=== PATIENT | male | born 1965 | race Caucasian/White ===

== ENCOUNTER 2016-06-14 11:33 | Emergency (ER) | payer OTHER ==
[~2016-06-14] VITALS: Ht 170.2 cm; Wt 88.5 kg
[2016-06-14] MEDS ORDERED: VITAMIN D250000 UNIT PO (12:04)
[2016-06-14] MEDS ORDERED: CLONAZEPAM0.5 M2 PO (12:04)
[2016-06-14] MEDS ORDERED: ATORVASTATIN CA20 M1 PO (12:05)
[2016-06-14] MEDS ORDERED: FOLIC ACID1 M1 PO (12:05)
[2016-06-14] MEDS ORDERED: AMLODIPINE-VAL1 EAC2 PO (12:05)
--- NOTE | 2016-06-14 13:11 | ED AMS/SEIZURE/WEAK/DIZZY ---
See Addendum History of Present Illness General Chief Complaint: Dizziness Stated Complaint: DIZZY Source: patient, family, old records Exam Limitations: no limitations Vital Signs & Intake/Output Vital Signs & Intake/Output Vital Signs Date Time Temp Pulse Resp B/P Pulse O2 O2 Flow FiO2 Ox Delivery Rate 06/14 1403 97.5 76 18 148/93 97 Room Air 06/14 1200 97 Room Air Room Air 06/14 1144 98.2 92 20 152/84 97 Room Air Allergies Coded Allergies: NO KNOWN ALLERGIES (06/14/16) Reconcile Medications Amlodipine/Valsartan (Amlodipine-Valsartan 5-320 MG) 5 MG-320 MG TABLET 1 TAB PO DAILY HEART (Reported) Atorvastatin Calcium 20 MG TABLET 1 TAB PO DAILY CHOLESTEROL (Reported) Clonazepam 0.5 MG TABLET 1 TAB PO DAILY ANXIETY (Reported) Ergocalciferol (Vitamin D2) (Vitamin D2) 50,000 UNIT CAPSULE 1 CAP PO QMON SUPPPLEMENT (Reported) Folic Acid 1 MG TABLET 1 TAB PO DAILY SUPPLEMENT (Reported) Triage Note: PT TO ER C/O SOB, DIZZY. PT WAS SEEN AT [facility] AND WAS SENT IN FOR FURTHER EVALUATION.. PT DENIES CP AND STATES HE HAS A HX OF ANXIETY. PT STATES HE FEELS LIKE HE IS GOING TO PASS OUT. Triage Nurses Notes Reviewed? yes HPI: Patient presents for evaluation of dizziness that began about 9:00 this morning. Patient states he had routine blood work at about 6:00 through the medical office at his employer. At about 9:00 he began having dizziness while at work. He went to the medical office and had repeat testing including an EKG blood pressure reading and a fingerstick blood glucose level. His blood pressure was elevated but the rest of the tests were unremarkable. Began feeling better after lying for a short time. Shortly after leaving the medical office he began feeling dizzy again and he returned. He was then asked to be evaluated in the emergency department. Patient states that there is a spinning component to his dizziness and he states he feels a little short of breath and shaky during the dizzy episodes. He also feels heart palpitations. He otherwise denies cold symptoms tinnitus or recent trauma. Symptoms are described as mild to moderate in intensity. Nothing seems to make him feel better. Past History Travel History Traveled to [place] past 21 day No Medical History Any Pertinent Medical History? see below for history Cardiovascular: hypertension, hyperlipidemia, HEART BLOCK Gastrointestinal: GERD Psychiatric: anxiety Endocrine: LYME DISEASE Surgical History Surgical History: non-contributory Psychosocial History Who do you live with Family Services at Home None What is your primary language Kiswahili Tobacco Use: Current Daily Use Daily Tobacco Use Amount/Type: => 5 Cigarettes daily Family History Hx Contributory? No Review of Systems Review of Systems Constitutional: Reports: no symptoms. EENTM: Reports: no symptoms. Respiratory: Reports: see HPI. Cardiovascular: Reports: palpitations. GI: Reports: no symptoms. Genitourinary: Reports: no symptoms. Musculoskeletal: Reports: no symptoms. Skin: Reports: no symptoms. Neurological/Psychological: Reports: anxiety, tremors. Hematologic/Endocrine: Reports: no symptoms. Immunologic/Allergic: Reports: no symptoms. All Other Systems: Reviewed and Negative Physical Exam Physical Exam General Appearance: SEE BELOW Comments: Gen.: Well-nourished, well-developed, no acute respiratory distress. Head: Normocephalic, atraumatic. Eyes: Normal inspection bilaterally Ears: Normal inspection bilaterally, no nystagmus, Hallpike negative Nose: Normal inspection Throat/mouth : Moist mucosa Neck: Supple, full range of motion, no goiter Heart: Regular rate and rhythm, no murmurs rubs or gallops Lungs: Clear to auscultation bilaterally with normal air entry Chest: Nontender Back: Normal range of motion Abdomen: Soft, nontender, nondistended, normal bowel sounds Extremities: Normal range of motion grossly, equal radial pulses, no cyanosis clubbing or edema Neurologic: Cranial nerves 2 through 12 intact, speech is clear, no dysmetria Skin: warm and dry Psychiatric: Calm, cooperative, no apparent delusions or hallucinations Core Measures ACS in differential dx? No CVA/TIA Diagnosis: No Severe Sepsis Present: No Septic Shock Present: No Progress Differential Diagnosis: arrythmia, anemia, CVA/stroke, dehydration, hypoglycemia , hypoxia, intracranial Hem., intracranial mass/tumor, postural hypotension, vertebrobasilar insuff Plan of Care: Orders Procedure Date/time Status MISTAKE 06/14 1311 Active THYROID STIMULATING HORMONE 06/14 1311 Complete TROPONIN LEVEL 06/14 1311 Complete CBC WITHOUT DIFFERENTIAL 06/14 1311 Complete BASIC METABOLIC PANEL 06/14 1311 Complete EKG 06/14 1135 Active Laboratory Tests 06/14/16 1338: Anion Gap 11, Estimated GFR > 60, BUN/Creatinine Ratio 16.0, Glucose 94, Calcium 9.9, Troponin I < 0.01, TSH 0.989, CBC w Diff NO MAN DIFF REQ, RBC 4.92, MCV 86.5, MCH 29.0, RDW 14.2, MPV 6.8 L, Gran % 70.2, Lymphocytes % 20.4 L, Monocytes % 8.2, Eosinophils % 0.8, Basophils % 0.4, Absolute Granulocytes 5.6, Absolute Lymphocytes 1.6, Absolute Monocytes 0.7 H, Absolute Eosinophils 0.1, Absolute Basophils 0, PUBS MCHC 33.5 Diagnostic Imaging: Discussed w/RAD: CT Scan. Radiology Impression: PATIENT: ELIZABETH KATE PRESENT AGE: 51 PATIENT ACCOUNT NO: [id number] : 63 LOCATION: [facility] ORDERING PHYSICIAN: DAVID HARPER MD SERVICE DATE: 06/14/16 EXAM TYPE: CAT - CT HEAD WO IV CONTRAST EXAMINATION: CT HEAD WITHOUT CONTRAST CLINICAL INFORMATION: Dizziness and vertigo. Question cerebrovascular accident. COMPARISON: CT scan of the head 09/16/2009. TECHNIQUE: Contiguous axial imaging was performed from the skull base to vertex without intravenous administration of contrast. DLP: 600.71 mGy-cm FINDINGS: There is no acute intracranial hemorrhage or abnormal extra-axial collection. No intracranial mass effect or midline shift. Lateral and third ventricles are normal. No hydrocephalus. Machado- white matter differentiation is preserved and there is no evidence of acute territorial infarct. The calvarium and skull base are intact. Mastoid air cells and middle ear cavities are well aerated. Visualized paranasal sinuses are well- aerated. IMPRESSION: Unremarkable CT scan of the head. No evidence of acute territorial infarct or hemorrhage. DICTATED BY: UCHE MARQUEZ MD DATE/TIME DICTATED:06/14/161516 RECREATIONAL VEHICLE RESORT MANAGER:RADHA DATE/TIME TRANSCRIBED:1516 CONFIDENTIAL, DO NOT COPY WITHOUT APPROPRIATE AUTHORIZATION. < Electronically signed in Other Vendor System> SIGNED BY: UCHE MARQUEZ MD 06/14/16 1522 Initial ED EKG: none Comments: 06/14/2016 4:02:02 PM I have updated Elizabeth on his test results. He is feeling a little better after the meclizine but has some residual dizziness. He was able to ambulate back and forth to the bathroom. He declined anxiety medication in the emergency department. I have advised him that the cause for his symptoms is unclear and although there might be an anxiety component, he should follow-up with Dr. PAZ for reevaluation and further testing. Departure Departure Disposition: HOME OR SELF CARE Condition: Stable Clinical Impression Primary Impression: Dizziness Referrals: JACKSON SAGASTUME,MADELINE Holm (PCP/Family) Additional Instructions: Please follow-up with Dr. PAZ for reevaluation and further testing on Friday. Rest, no exertion. Continue your anxiety medications. Since the cause of your symptoms is somewhat unclear at this point please return to the emergency department if any concerns or sudden worsening. Please note that there might be incidental findings in your evaluation that are unrelated to the current emergency department visit. Please notify your primary care doctor about this emergency department visit in order to obtain and review all of the testing performed so that these incidental findings can be monitored as needed. If you had an x-ray performed, please understand that some fractures may not be seen on the initial set of x-rays. If your symptoms persist you might need a repeat set of x-rays to check for such a fracture. If you had a laceration evaluated, please understand that foreign bodies such as glass or wood may not be visible to the naked eye or on plain x-rays. If the wound becomes red, swollen, increasingly more painful or if there is any drainage from the wound, please have it reevaluated by a physician for the possibility of a retained foreign body. Thank you for choosing the [facility] Emergency Department for your care. It was a pleasure to serve you today. David Harper M.D. [facility] Departure Forms: Customer Survey General Discharge Information
[2016-06-14 13:46] LABS: ABSOLUTE BASOPHIL COUNT 0 /CUMM (0.0-0.2); ABSOLUTE EOSINOPHIL COUNT 0.1 /CUMM (0.0-0.7); ABSOLUTE GRANULOCYTE CT 5.6 /CUMM (1.4-6.5); ABSOLUTE LYMPH COUNT 1.6 /CUMM (1.2-3.4); ABSOLUTE MONOCYTE COUNT 0.7 /CUMM (0.10-0.60); BASOPHIL % 0.4 % (0.0-2.0); EOSINOPHIL % 0.8 % (0-5); GRANULOCYTE % 70.2 % (42.2-75.2); HEMATOCRIT 42.5 % (42-52); MEAN CORPUSCULAR HGB CONC 33.5 G/DL (33.0-37.0); MEAN CORPUSCULAR VOLUME 86.5 FL (80.0-94.0); MEAN PLATELET VOLUME 6.8 FL (7.4-10.4); PLATELET COUNT 253 /CUMM (130-400); RBC DISTRIBUTION WIDTH 14.2 % (11.5-14.5); RED BLOOD CELL CT 4.92 /CUMM (4.70-6.10); WHITE BLOOD CELL COUNT 7.9 /CUMM (4.8-10.8)
--- NOTE | 2016-06-14 15:22 | CT SCAN REPORT ---
EXAMINATION: CT HEAD WITHOUT CONTRAST CLINICAL INFORMATION: Dizziness and vertigo. Question cerebrovascular accident. COMPARISON: CT scan of the head 09/16/2009. TECHNIQUE: Contiguous axial imaging was performed from the skull base to vertex without intravenous administration of contrast. DLP: 600.71 mGy-cm FINDINGS: There is no acute intracranial hemorrhage or abnormal extra-axial collection. No intracranial mass effect or midline shift. Lateral and third ventricles are normal. No hydrocephalus. Machado-white matter differentiation is preserved and there is no evidence of acute territorial infarct. The calvarium and skull base are intact. Mastoid air cells and middle ear cavities are well aerated. Visualized paranasal sinuses are well-aerated. IMPRESSION: Unremarkable CT scan of the head. No evidence of acute territorial infarct or hemorrhage.
[2016-06-14 16:32] VITALS: BP 137/88
== END 2016-06-14 16:33 ==
LOC: ERH 11:33
PROVIDERS: Emergency Medicine
DX: R42 Dizziness and giddiness (principal); I10 Essential (primary) hypertension; Z72.0 Tobacco use
CPT/HCPCS: 93005; 93010